=== PATIENT | female | born 1990 | race Caucasian/White ===

== ENCOUNTER 2016-10-27 22:54 | Emergency (ER) | payer OTHER ==
[2016-10-27 23:08] VITALS: BP 147/91
[2016-10-27] MEDS ORDERED: PSEUDOEPHEDRINE 30 MG TABLET PO STA (23:15)
[2016-10-27] MEDS ORDERED: diphenhydrAMINE 25 MG CAPSULE PO STA (23:15)
[2016-10-27] MEDS ORDERED: diphenhydrAMINE 25 MG CAPSULE PO ONE (23:17)
[2016-10-27] MEDS ORDERED: PSEUDOEPHEDRINE 30 MG TABLET PO ONE (23:17)
--- NOTE | 2016-10-27 23:49 | ED Physician Documentation ---
PD HPI HEENT - Stated complaint Stated Complaint: FACE PX - Chief complaint Chief Complaint: Neuro - History obtained from History obtained from: Patient, Family - History of Present Illness Timing - onset: Today Timing - details: Gradual onset Location: Left ear, Sinuses Improves: Nothing Associated symptoms: Congestion. No: Rhinorrhea, Trismus, Unable to swallow, Facial swelling, Headache Similar symptoms before: Has not had sx before Recently seen: Not recently seen - Additional information Additional information: Patient is a 26 year old female with no significant past medical history who is presenting to the emergency department for tingling in her face and fullness in her ear. patient states that the symptoms started earlier today. patient reports that she can still feel everything but it just feels funny. Upon initial evaluation in the emergency department patient was well appearing with no neurological deficits. Review of Systems Constitutional: denies: Fever, Chills Eyes: denies: Loss of vision, Discharge, Irritation Ears: reports: Loss of hearing, Ear pain Nose: reports: Congestion, Sinus pressure / pain Throat: denies: Dental pain / toothache, Oral lesions / sores Cardiac: denies: Chest pain / pressure, Palpitations Respiratory: denies: Cough, Wheezing GI: denies: Nausea, Vomiting, Constipation, Diarrhea : denies: Dysuria, Frequency, Incontinent, Hematuria, Vaginal bleeding Skin: denies: Rash, Lesions Musculoskeletal: denies: Neck pain, Back pain, Extremity pain, Joint pain Neurologic: reports: Numbness. denies: Generalized weakness, Focal weakness, Difficulty speaking, Near syncope, Syncope Psychiatric: denies: Depressed, Suicidal Immunocompromised: denies: Immunocompromised PD PAST MEDICAL HISTORY - Past Medical History Past Medical History: No - Past Surgical History Past Surgical History: No - Present Medications Home Medications: Ambulatory Orders Medication Instructions Recorded Confirmed Atenolol 50 mg PO DAILY 10/27/16 10/27/16 - Allergies Allergies/Adverse Reactions: Allergies Allergy/AdvReac Type Severity Reaction Status Date / Time No Known Drug Allergies Allergy Verified 10/27/16 23:16 - Social History Does the pt smoke?: No Smoking Status: Never smoker Does the pt drink ETOH?: No Does the pt have substance abuse?: No PD ED PE NORMAL - Vitals Vital signs reviewed: Yes - General General: Alert and oriented X 3, No acute distress - HEENT HEENT: Atraumatic, PERRL, Moist mucous membranes, Pharynx benign - Neck Neck: Supple, no meningeal sign, No JVD - Cardiac Cardiac: RRR, No murmur - Respiratory Respiratory: No respiratory distress, Clear bilaterally - Abdomen Abdomen: Soft, Non tender, Non distended - Derm Derm: Normal color, Warm and dry, No rash - Extremities Extremities: No deformity, No tenderness to palpate, Normal ROM s pain - Neuro Neuro: Alert and oriented X 3, 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 Vital signs were within normal limits. Patient was well appearing and in no acute distress. patient was treated with pseudophed and benadryl. Patient had no neurological deficits. Patient was stable for discharge with outpatient follow up. Departure - Departure Disposition: 01 Home, Self Care Clinical Impression: Upper respiratory infection, viral Condition: Good Instructions: ED Viral Syndrome Follow-Up: Lionel Clemons ARNP [Primary Care Provider] - Comments: Your exam showed mild signs of a developing virus but no signs of underlying neurological dysfunction. You can take psuedopherine for the congestion, as well as allergy medications. You should follow up with your pmd if your symptoms persist. You may return to the emergency department at any time for new, worsening or uncontrollable symptoms. Discharge Date/Time: 10/27/16 23:54
== END 2016-10-27 23:54 | disposition home or self-care (01) ==
LOC: ED 22:54
DX: J06.9 Acute upper respiratory infection, unspecified (principal); B97.89 Other viral agents as the cause of diseases classified elsewhere
CPT/HCPCS: 99282; 99283; A9270

== ENCOUNTER 2017-01-09 08:48 | Outpatient (CLI) | payer OTHER ==
[2017-01-09] MEDS ORDERED: GADOBUTROL 10 MMOL/10 ML VIAL IVP ONE (09:49)
--- NOTE | 2017-01-09 13:27 | MRI Report ---
EXAM: MRI BRAIN WITHOUT AND WITH CONTRAST EXAM DATE: 01/09/2017 09:53 AM. CLINICAL HISTORY: Paresthesias of skin. 4 months of numbness and tingling on the left. COMPARISON: None. TECHNIQUE: Multiplanar, multisequence T1-weighted and fluid-sensitive MR sequences of the brain were performed. Sequences optimized for routine evaluation. Other: None. Without and with IV Contrast: 9 c c Gadavist. FINDINGS: No abnormal diffusion signal is identified in the brain parenchyma. No cerebellar tonsillar ectopia is present. Ventricles and sulci are within normal limits. No extra-a xial fluid collection is seen. The entirety of the brain is not included on the axial images with the superior aspect of the frontal and parietal lobe not visualized. In the visualized brain, no abnorma l T2 or FLAIR hyperintense signal is present. Specifically, no abnormal T2 or FLAIR hyperintense sign al is seen in the infratentorial brain or in the pericallosal white matter. No enhancing mass is identified in the brain parenchyma. The cavernous sinuses enhance in symmetric f ashion. In the right aspect of the pituitary gland, note is made of a 2 x 2 mm hypoenhancing focus. This is s een just right lateral to midline. The pituitary gland is not enlarged. The cavernous sinuses enhance in symmetric fashion. Expected enhancement is seen in the major dural venous sinuses. No orbital mass is present. Prominent lymph nodes in the upper neck might well be reactive in nature. IMPRESSION: 1. No abnormal signal or enhancement is seen in the brain parenchyma. Specifically, no abnormal signa l is seen in the supratentorial or infratentorial white matter to suggest demyelination. 2. No intra-axial mass is present. 3. A 2 mm hypoenhancing focus in the right aspect of the pituitary gland is nonspecific. This could r eflect a pituitary cyst or a microadenoma. [facility] Referring Provider Line: [phone] SITE ID: [id number]
== END 2017-01-09 08:49 | disposition home or self-care (01) ==
LOC: DI 08:48
PROVIDERS: ATTEND Registered Nurse Diabetes Educator
DX: R20.2 Paresthesia of skin (principal)
CPT/HCPCS: 70553; A9585

== ENCOUNTER 2017-07-12 07:44 | Outpatient (CLI) | payer OTHER ==
[2017-07-12] MEDS ORDERED: GADOBUTROL 10 MMOL/10 ML VIAL ONE (07:45)
--- NOTE | 2017-07-12 17:36 | MRI Report ---
EXAM: MRI CERVICAL SPINE WITHOUT CONTRAST EXAM DATE: 07/12/2017 09:07 AM. CLINICAL HISTORY: Numbness/tingling upper and lower extremities x 9 months. COMPARISONS: None. TECHNIQUE: Multiplanar, multisequence T1-weighted and fluid-sensitive sequences of the cervical spine without contrast. Other: None. FINDINGS: There is normal alignment of the cervical spine. There are normal signal intensities demonstrated throughout the cervical spinal cord. The craniocervi dharmesh junction is normal. The bone marrow signal intensities are normal. C2-C3: There is no significant disk bulge, central or foraminal stenosis. The facets are normal. C3-C4: There is no significant disk bulge, central or foraminal stenosis. The facets are normal. C4-C5: There is no significant disk bulge, central or foraminal stenosis. The facets are normal. C5-C6: There is no significant disk bulge, central or foraminal stenosis. The facets are normal. C6-C7: There is no significant disk bulge, central or foraminal stenosis. The facets are normal. C7-T1: There is no significant disk bulge, central or foraminal stenosis. The facets are normal. IMPRESSION: 1. There is no significant central or foraminal stenosis throughout the cervical spine. There are no T2 hyperintense lesions within the cervical spinal cord to suggest a demyelinating plaque. Referring Provider Line: [phone] SITE ID: [id number]
== END 2017-07-12 07:45 | disposition home or self-care (01) ==
LOC: DI 07:44
PROVIDERS: ATTEND Psychiatry & Neurology Neurology
DX: R20.2 Paresthesia of skin (principal); R20.0 Anesthesia of skin
CPT/HCPCS: 72141